=== PATIENT | male | born 1985 | race American Indian/Alaskan Native ===

== ENCOUNTER 2018-05-31 18:52 | Emergency (ER) | payer SELFPAY ==
[2018-05-31 19:22] VITALS: BP 158/97
== END 2018-05-31 19:20 | disposition left against medical advice (07) ==
LOC: ED 18:52
DX: R30.0 Dysuria (principal); Z53.21 Procedure and treatment not carried out due to patient leaving prior to being seen by health care provider

== ENCOUNTER 2018-10-08 06:09 | Emergency (ER) | payer SELFPAY ==
[2018-10-08 06:18] VITALS: BP 133/65
--- NOTE | 2018-10-08 06:40 | XRay Report ---
FINAL REPORT PROCEDURE: XR HAND 2V RT TECHNIQUE: RIGHT hand radiographs, AP and lateral views. CPT 26516-YT HISTORY: pain/swelling hurt right middle finger on the job COMPARISON: No prior studies are available for comparison. FINDINGS: Fracture (s) and/or Dislocation(s): None . Alignment: Normal . Joint space(s): Normal . Soft tissues: Normal . Bone mineralization: Normal . Foreign bodies: None . IMPRESSION: Normal Examination .
--- NOTE | 2018-10-08 07:34 | Emergency Department Report ---
HPI - General Chief Complaint: Extremity Injury, Upper Time Seen by Provider: 10/08/18 07:28 - HPI HPI: This is a 32-year-old male with no prior medical history presents to ED stating that 3 days ago while he was at work he hit his middle finger on his right hand. Patient states he lifts things also felt line and accidentally cut his middle finger. Patient states that he came to be evaluated. He denies any deformity, inability to use his hands. He denies loss of sensation and is able to flex and extend his hands. ED Past Medical Hx - Past Medical History Previous Medical History?: No - Surgical History Past Surgical History?: No - Social History Smoking Status: Current Every Day Smoker Substance Use Type: Alcohol - Medications Home Medications: Home Medications Medication Instructions Recorded Confirmed Last Taken Type Ibuprofen [Motrin] 800 mg PO Q8HR #20 tablet 10/08/18 Unknown Rx cephALEXin [Keflex] 500 mg PO Q12HR #10 cap 10/08/18 Unknown Rx ED Review of Systems ROS: Stated complaint: FINGER INJURY Other details as noted in HPI Comment: All other systems reviewed and negative Physical Exam - Physical Exam Vital Signs: Vital Signs 10/08/18 06:17 Temperature 97.9 F Pulse Rate 65 Respiratory 18 Rate Blood Pressure 133/65 [Left] O2 Sat by Pulse 97 Oximetry Physical Exam: GENERAL: Alert and oriented x3, no apparent distress, Normal Gait, atraumatic. HEAD: Head is normocephalic and a-traumatic. EXTREMITIES/MUSCULOSKELETAL: No cyanosis, clubbing, rash, lesions or edema. Full ROM bilaterally. Radial Pulses 2+ bilaterally. UE 5+ strength bilaterally, right middle finger abrasion to the posterior aspect of the finger. Nontender to palpation, does not look infected. NEUROLOGIC: The patient is cooperative with no focal neurologic deficits. SKIN: Warm and dry, No lesions, No ulceration or induration present. ED Course Vital Signs 10/08/18 06:17 Temperature 97.9 F Pulse Rate 65 Respiratory 18 Rate Blood Pressure 133/65 [Left] O2 Sat by Pulse 97 Oximetry ED Medical Decision Making - Radiology Data Radiology results: report reviewed, image reviewed FINAL REPORT PROCEDURE: XR HAND 2V RT TECHNIQUE: RIGHT hand radiographs, AP and lateral views. CPT 10147-BQ HISTORY: pain/swelling hurt right middle finger on the job COMPARISON: No prior studies are available for comparison. FINDINGS: Fracture (s) and/or Dislocation(s): None . Alignment: Normal . Joint space(s): Normal . Soft tissues: Normal . Bone mineralization: Normal . Foreign bodies: None . IMPRESSION: Normal Examination . Transcribed By: [facility] Dictated By: KYLIE ALEX MD Electronically Authenticated By: KYLIE ALEX MD Signed Date/Time: 10/08/18 0640 Critical care attestation.: If time is entered above; I have spent that time in minutes in the direct care of this critically ill patient, excluding procedure time. ED Disposition Clinical Impression: Finger abrasion, non-infected Disposition: - TO HOME OR SELFCARE Is pt being admited?: No Does the pt Need Aspirin: No Condition: Stable Instructions: Abrasion (ED), Acute Wound Care (ED) Additional Instructions: Make sure to follow up with the primary care physician as discussed. Take all your medications as you've been prescribed. If you have any worsening symptoms or develop new symptoms please return to ED immediately. Prescriptions: cephALEXin [Keflex] 500 mg PO Q12HR #10 cap Ibuprofen [Motrin] 800 mg PO Q8HR #20 tablet Referrals: ANNE MARIE TURCIOS MD [Primary Care Provider] - 3-5 Days Forms: Work/School Release Form(ED) Time of Disposition: 07:49
== END 2018-10-08 07:58 | disposition home or self-care (01) ==
LOC: ED 06:09
DX: S60.412A Abrasion of right middle finger, initial encounter (principal); F17.200 Nicotine dependence, unspecified, uncomplicated; W45.8XXA Other foreign body or object entering through skin, initial encounter; Y93.89 Activity, other specified; Y92.89 Other specified places as the place of occurrence of the external cause; Y99.8 Other external cause status

== ENCOUNTER 2019-08-11 20:15 | Emergency (ER) | payer SELFPAY ==
--- NOTE | 2019-08-11 21:17 | Event Note ---
ED Screening Note Date of service: 08/11/19 Time: 21:15 ED Screening Note: 33 y edouard presents with right sided lower jaw swelling and pain x 2 days states motrin no relief pain with opening mouth and talking, UNABLE TO EAT DUE TO PAIN AND SWELL swelling noted to bottom right jaw, ttp This initial assessment/diagnostic orders/clinical plan/treatment(s) is/are subject to change based on patients health status, clinical progression and re- assessment by fellow clinical providers in the ED. Further treatment and workup at subsequent clinical providers discretion. Patient/guardian urged not to elope from the ED as their condition may be serious if not clinically assessed and managed. Initial orders include: PAIN MEDS ACC EVAL
[2019-08-12] MEDS ORDERED: KETOROLAC 30 MG/1 ML INJ IV ONE (00:14)
--- NOTE | 2019-08-12 00:22 | Emergency Department Report ---
HPI - HPI HPI: Room 39 The patient is a 33-year-old male presenting with chief complaint of jaw pain. The patient states he awakened 2 days ago with pain and swelling in the right submandibular region. Patient denies any preceding trauma. Patient complains of trismus and odynophagia. Patient states she has just been drinking ensure for the past 2 days. Patient denies any history of fever. The patient gets his pain a score of 9/10. The patient states he took the bus to the hospital Location: [See above] Duration: [See above] Quality: [See above] Severity: [See above] Timing: [See above] Context: [See above] Modifying factors: [See above] Associated signs and symptoms: [see above] <PAULO HOLT - Last Filed: 08/12/19 02:30> <ISHMAEL FERREIRA - Last Filed: 08/12/19 03:57> - General Chief Complaint: Dental/Oral Time Seen by Provider: 08/12/19 00:07 ED Past Medical Hx - Past Medical History Previous Medical History?: No - Surgical History Past Surgical History?: No - Family History Family history: no significant - Social History Smoking Status: Current Every Day Smoker (1/3 pack per day) Substance Use Type: None (denies illicit drug use), Alcohol (occasional) <PAULO HOLT - Last Filed: 08/12/19 02:30> <ISHMAEL FERREIRA - Last Filed: 08/12/19 03:57> - Medications Home Medications: Home Medications Medication Instructions Recorded Confirmed Last Taken Type Ibuprofen [Motrin] 800 mg PO Q8HR #20 tablet 10/08/18 Unknown Rx cephALEXin [Keflex] 500 mg PO Q12HR #10 cap 10/08/18 Unknown Rx Acetaminophen/Codeine [Tylenol 1 tab PO Q6H PRN #12 tab 08/12/19 Unknown Rx /Codeine # 3 tab] Clindamycin [Clindamycin CAP] 300 mg PO Q6HR #80 capsule 08/12/19 Unknown Rx Ketorolac [Toradol] 10 mg PO Q8H PRN #20 tablet 08/12/19 Unknown Rx ED Review of Systems ROS: Stated complaint: SWOLLEN RIGHT JAW, CANT SWALLOW Other details as noted in HPI Constitutional: denies: fever Eyes: denies: eye pain ENT: throat pain, other (trismus) Respiratory: no symptoms reported Cardiovascular: denies: chest pain Endocrine: no symptoms reported Gastrointestinal: denies: abdominal pain <PAULO HOLT - Last Filed: 08/12/19 02:30> ROS: Stated complaint: SWOLLEN RIGHT JAW, CANT SWALLOW Other details as noted in HPI <ISHMAEL FERREIRA - Last Filed: 08/12/19 03:57> Physical Exam - Physical Exam Vital Signs: Vital Signs 08/11/19 20:21 Temperature 98.5 F Pulse Rate 84 Respiratory 20 Rate Blood Pressure 140/81 O2 Sat by Pulse 99 Oximetry Physical Exam: GENERAL: The patient is well-developed well-nourished male lying on stretcher not appearing to be in acute distress. [] HEENT: Normocephalic. Atraumatic. Trismus present. Right submandibular fullness with tenderness to palpation. Gingiva normal in appearance NECK: Supple. There is no stridor CHEST/LUNGS: There is no respiratory distress noted. SKIN: There is no rash. There is no edema. There is no diaphoresis. NEURO: The patient is awake, alert, and oriented. The patient is cooperative. The patient has no focal neurologic deficits. The patient has normal speech MUSCULOSKELETAL: There is no evidence of acute injury. <PAULO HOLT - Last Filed: 08/12/19 02:30> - Physical Exam Vital Signs: Vital Signs 08/11/19 20:21 Temperature 98.5 F Pulse Rate 84 Respiratory 20 Rate Blood Pressure 140/81 O2 Sat by Pulse 99 Oximetry <ISHMAEL FERREIRA - Last Filed: 08/12/19 03:57> ED Course Vital Signs 08/11/19 20:21 Temperature 98.5 F Pulse Rate 84 Respiratory 20 Rate Blood Pressure 140/81 O2 Sat by Pulse 99 Oximetry - Reevaluation(s) Reevaluation #1: 08/12/19 02:30 CT Neck pending. Results to be followed up By Nedra DURAN. <PAULO HOLT - Last Filed: 08/12/19 02:30> Vital Signs 08/11/19 20:21 Temperature 98.5 F Pulse Rate 84 Respiratory 20 Rate Blood Pressure 140/81 O2 Sat by Pulse 99 Oximetry <ISHMAEL FERREIRA - Last Filed: 08/12/19 03:57> ED Medical Decision Making - Lab Data Result diagrams: 08/12/19 00:41 08/12/19 00:41 Laboratory Tests 08/12/19 08/12/19 00:41 00:41 WBC 16.6 H RBC 5.02 Hgb 15.9 H Hct 48.0 H MCV 96 H MCH 32 MCHC 33 RDW 13.3 Plt Count 299 [place] % (Auto) [place]eller Sodium 136 L Potassium 4.3 Chloride 95.3 L Carbon Dioxide 23 Anion Gap 22 BUN 11 Creatinine 1.3 Estimated GFR > 60 BUN/Creatinine Ratio 8 Glucose 104 H Calcium 9.8 - Differential Diagnosis sialoadenitis, parotitis <PAULO HOLT - Last Filed: 08/12/19 02:30> - Lab Data Result diagrams: 08/12/19 00:41 08/12/19 00:41 - Radiology Data Radiology results: report reviewed, image reviewed Findings [facility] [address] [place] [address] Cat Scan Report Signed Patient: FRANK CHINO MR#: [id number] : 1985 Acct:[id number] Age/Sex: 33 / M ADM Date: 08/11/19 Loc: ED Attending Dr: Ordering Physician: PAULO HOLT MD Date of Service: 08/12/19 Procedure(s): CT neck w con Accession Number(s): [id number] cc: PAULO HOLT MD CT NECK WITH CONTRAST HISTORY: Right submandibular swelling. COMPARISON: None. TECHNIQUE: Routine CT of the neck is performed following intravenous contrast. All CT scans at this location are performed using CT dose reduction for ALARA by means of automated exposure control. CONTRAST: 100 mL Omnipaque 300 FINDINGS: There is a right-sided facial cellulitis in the right lower cheek. In addition, there is a fluid collection along the medial surface of the right mandibular angle and the terrazzo worker space extending superiorly along the distal attachment of the right temporalis muscle that measures 2.4 x 2.5 cm in axial dimension and 2.6 cm in greatest craniocaudal dimension. There is an unerupted right mandibular third molar adjacent to the fluid collection with subtle cortical breakthrough along the tooth apex that is the probable source of infection. There is mild right level 1 reactive adenopathy. There is no venous thrombosis. IMPRESSION: 1. Right-sided facial cellulitis with a 2.6 cm abscess along the medial surface of the right mandibular angle in the right terrazzo worker space that appears to be due to periapical dental disease and cortical breakthrough involving the right mandibular third molar. Signer Name: Kwabena Miller MD Signed: 08/12/2019 3:27 AM Workstation Name: [id number] Transcribed By: VENKATA Dictated By: Kwabena Miller MD Electronically Authenticated By: Kwabena Miller MD Signed Date/Time: 08/12/19 0327 - Medical Decision Making The soft tissue neck CT scan with contrast report reviewed and shows a right-si ded facial cellulitis with a 2.6 cm abscess along the medial surface of the right mandibular angle in the right terrazzo worker space that appears to be due to periapical dental disease and cortical breakthrough involving the right mandibular third molar. Report was reviewed with the ED attending physician Dr. Lalo Mane the plan of care to discharge the patient home on oral antibiotics, pain medications and a referral to the dentist or oral surgeon. On reevaluation, patient's resting comfortably in the bed having been sleeping. Patient was discharged home on pain medications and oral antibiotics clindamycin and referred to the [facility] for further evaluation. Davion marlenejose was advised to return to the ED immediately if symptoms get worse. <ISHMAEL FERREIRA - Last Filed: 08/12/19 03:57> Critical care attestation.: If time is entered above; I have spent that time in minutes in the direct care of this critically ill patient, excluding procedure time. <PAULO HOLT - Last Filed: 08/12/19 02:30> Critical care attestation.: If time is entered above; I have spent that time in minutes in the direct care of this critically ill patient, excluding procedure time. <ISHMAEL FERREIRA - Last Filed: 08/12/19 03:57> ED Disposition <PAULO HOLT - Last Filed: 08/12/19 02:30> Is pt being admited?: No Does the pt Need Aspirin: No Time of Disposition: 03:54 <ISHMAEL FERREIRA - Last Filed: 08/12/19 03:57> Clinical Impression: Dental abscess, Acute gingivitis Cellulitis Qualifiers: Site of cellulitis: neck Qualified Code(s): L03.221 - Cellulitis of neck Disposition: TO HOME OR SELFCARE Condition: Stable Instructions: Dental Abscess (ED), Cellulitis (ED), Gingivitis (ED) Additional Instructions: Take medication with food, drink plenty of fluids and follow-up with your [facility] 3-5 days for reevaluation. Return to the ED immediately if symptoms get worse. Prescriptions: Clindamycin [Clindamycin CAP] 300 mg PO Q6HR #80 capsule Ketorolac [Toradol] 10 mg PO Q8H PRN #20 tablet PRN Reason: Pain Acetaminophen/Codeine [Tylenol /Codeine # 3 tab] 1 tab PO Q6H PRN #12 tab PRN Reason: Pain , Severe (7-10) Referrals: [facility] [Outside] - 3-5 Days Print Language: VINCENTIAN
[2019-08-12 01:14] LABS: Hemoglobin 15.9 gm/dl (11.8-15.2); Mean Corpuscular HGB Conc 33 % (32-34); Mean Corpuscular Volume 96 fl (84-94); Red Blood Count 5.02 M/mm3 (3.65-5.03); Red Cell Distribution Width 13.3 % (13.2-15.2)
[2019-08-12 01:20] LABS: Platelet Count 299 K/mm3 (140-440)
[2019-08-12 01:30] LABS: BUN/Creatinine Ratio 8; Blood Urea Nitrogen 11 mg/dL (9-20); Calcium 9.8 mg/dL (8.4-10.2); Hemolysis Index 66
--- NOTE | 2019-08-12 03:32 | Cat Scan Report ---
CT NECK WITH CONTRAST HISTORY: Right submandibular swelling. COMPARISON: None. TECHNIQUE: Routine CT of the neck is performed following intravenous contrast. All CT scans at this [facility] are performed using CT dose reduction for ALARA by means of automated exposure control. CONTRAST: 100 mL Omnipaque 300 FINDINGS: There is a right-sided facial cellulitis in the right lower cheek. In addition, there is a fluid rebecca ection along the medial surface of the right mandibular angle and the fruit harvest worker space extending supe riorly along the distal attachment of the right temporalis muscle that measures 2.4 x 2.5 cm in axial dimension and 2.6 cm in greatest craniocaudal dimension. There is an unerupted right mandibular thir d molar adjacent to the fluid collection with subtle cortical breakthrough along the tooth apex that is the probable source of infection. There is mild right level 1 reactive adenopathy. There is no rios ous thrombosis. IMPRESSION: 1. Right-sided facial cellulitis with a 2.6 cm abscess along the medial surface of the right mandibul ar angle in the right fruit harvest worker space that appears to be due to periapical dental disease and cortic al breakthrough involving the right mandibular third molar. Signer Name: Kwabena Miller MD Signed: 08/12/2019 3:27 AM Workstation Name: [email or web address]
[2019-08-12 04:36] VITALS: BP 132/68
[2019-08-12 04:47] LABS: Anisocytosis 1+; Basophils % (Manual) 0 % (0.0-1.8); Eosinophils % (Manual) 0 % (0.0-4.3); Platelet Estimate Consistent w Auto; Total Cells Counted 100
== END 2019-08-12 04:37 | disposition home or self-care (01) ==
LOC: ED 20:15
DX: K04.7 Periapical abscess without sinus (principal); K05.00 Acute gingivitis, plaque induced; L03.211 Cellulitis of face; F17.200 Nicotine dependence, unspecified, uncomplicated; Z79.899 Other long term (current) drug therapy
CPT/HCPCS: 36415; 70491; 80048; 85007; 85025; 96374; 99284; J1885; Q9967

== ENCOUNTER 2019-12-26 13:42 | Emergency (ER) | payer SELFPAY ==
[2019-12-26 13:52] VITALS: BP 118/82
[2019-12-26] MEDS ORDERED: SODIUM CHLORIDE 0.9% 1000 ML 1,000 ML IV ONE (15:40)
[2019-12-26] MEDS ORDERED: dexAMETHasone 20 MG/5 ML VIAL IV ONE (15:41)
[2019-12-26] MEDS ORDERED: PENICILLIN G BENZATHINE 1.2 MILLION UNIT/2 ML INJ IM ONE (15:59)
--- NOTE | 2019-12-26 16:06 | Emergency Department Report ---
ED ENT HPI - General Chief complaint: Sore Throat Stated complaint: MOUTH SWOLLEN Time Seen by Provider: 12/26/19 14:24 Source: patient Mode of arrival: Ambulatory Limitations: No Limitations - History of Present Illness Initial comments: 34-year-old male reports neck swelling and inability to open his mouth x2 days. He has only been able to take sips of fluids unable to open his mouth to put food in. He denies fever, URI symptoms shortness of breath or chest pain. He denies any past medical history Consistency: constant Improves with: none Worsens with: swallowing Associated Symptoms: pain with swallowing. denies: fever, cough, gum swelling, toothache - Related Data Previous Rx's Medication Instructions Recorded Last Taken Type Ibuprofen [Motrin] 800 mg PO Q8HR #20 tablet 10/08/18 Unknown Rx cephALEXin [Keflex] 500 mg PO Q12HR #10 cap 10/08/18 Unknown Rx Acetaminophen/Codeine [Tylenol 1 tab PO Q6H PRN #12 tab 08/12/19 Unknown Rx /Codeine # 3 tab] Clindamycin [Clindamycin CAP] 300 mg PO Q6HR #80 capsule 08/12/19 Unknown Rx Ketorolac [Toradol] 10 mg PO Q8H PRN #20 tablet 08/12/19 Unknown Rx Clindamycin [Clindamycin CAP] 300 mg PO Q8H 10 Days #30 cap 12/26/19 Unknown Rx Allergies Allergy/AdvReac Type Severity Reaction Status Date / Time No Known Allergies Allergy Unverified 10/08/18 06:13 ED Dental HPI - General Chief complaint: Sore Throat Stated complaint: MOUTH SWOLLEN Time Seen by Provider: 12/26/19 14:24 Source: patient Mode of arrival: Ambulatory Limitations: No Limitations - Related Data Previous Rx's Medication Instructions Recorded Last Taken Type Ibuprofen [Motrin] 800 mg PO Q8HR #20 tablet 10/08/18 Unknown Rx cephALEXin [Keflex] 500 mg PO Q12HR #10 cap 10/08/18 Unknown Rx Acetaminophen/Codeine [Tylenol 1 tab PO Q6H PRN #12 tab 08/12/19 Unknown Rx /Codeine # 3 tab] Clindamycin [Clindamycin CAP] 300 mg PO Q6HR #80 capsule 08/12/19 Unknown Rx Ketorolac [Toradol] 10 mg PO Q8H PRN #20 tablet 08/12/19 Unknown Rx Clindamycin [Clindamycin CAP] 300 mg PO Q8H 10 Days #30 cap 12/26/19 Unknown Rx Allergies Allergy/AdvReac Type Severity Reaction Status Date / Time No Known Allergies Allergy Unverified 10/08/18 06:13 ED Review of Systems ROS: Stated complaint: MOUTH SWOLLEN Other details as noted in HPI Comment: All other systems reviewed and negative Constitutional: denies: chills, fever Eyes: denies: eye pain, vision change ENT: throat pain, other (drooling) Cardiovascular: denies: chest pain Endocrine: denies: no symptoms reported Gastrointestinal: denies: abdominal pain, diarrhea, constipation Genitourinary: denies: urgency, hematuria Skin: denies: rash, change in color Neurological: denies: headache, paresthesias Psychiatric: denies: anxiety ED Past Medical Hx - Past Medical History Previous Medical History?: No - Surgical History Past Surgical History?: No - Social History Smoking Status: Current Every Day Smoker Substance Use Type: Alcohol - Medications Home Medications: Home Medications Medication Instructions Recorded Confirmed Last Taken Type Ibuprofen [Motrin] 800 mg PO Q8HR #20 tablet 10/08/18 Unknown Rx cephALEXin [Keflex] 500 mg PO Q12HR #10 cap 10/08/18 Unknown Rx Acetaminophen/Codeine [Tylenol 1 tab PO Q6H PRN #12 tab 08/12/19 Unknown Rx /Codeine # 3 tab] Clindamycin [Clindamycin CAP] 300 mg PO Q6HR #80 capsule 08/12/19 Unknown Rx Ketorolac [Toradol] 10 mg PO Q8H PRN #20 tablet 08/12/19 Unknown Rx Clindamycin [Clindamycin CAP] 300 mg PO Q8H 10 Days #30 cap 12/26/19 Unknown Rx ED Physical Exam - General Limitations: No Limitations General appearance: alert, in no apparent distress - Head Head exam: Present: atraumatic - Eye Eye exam: Present: normal appearance. Absent: conjunctival injection - ENT ENT exam: Present: TM's normal bilaterally, other (pt unable to open mouth.Unable to visualize throat. Opens up only enough to proturde his tongue. Able to take small sips. ) - Neck Neck exam: Present: lymphadenopathy - Respiratory Respiratory exam: Present: normal lung sounds bilaterally. Absent: respiratory distress, wheezes, rales, rhonchi - Extremities Exam Extremities exam: Present: normal inspection - Neurological Exam Neurological exam: Present: alert, oriented X3 - Psychiatric Psychiatric exam: Present: normal affect - Skin Skin exam: Present: warm, dry, intact, normal color. Absent: rash ED Course Vital Signs 12/26/19 13:48 Temperature 98.5 F Pulse Rate 79 Respiratory 20 Rate Blood Pressure 118/82 O2 Sat by Pulse 96 Oximetry - Reevaluation(s) Reevaluation #1: 12/26/19 17:56 Patient resting comfortably in no distress still with limited opening of his mouth. He is able to take oral fluids. ED Medical Decision Making - Lab Data Result diagrams: 12/26/19 15:46 12/26/19 15:46 - Radiology Data Radiology results: report reviewed CT soft tissue neck IMPRESSION: 1. Phlegmon/early abscess seen in the insulation power unit tender space region on the right, along the mandible, as described above. Similar type findings seen on prior exam - Medical Decision Making 34-year-old male presented to the ER with throat pain and inability to open his mouth x 2 days. Rapid strep is positive and patient was treated with Bicillin injection. CT soft tissue neck shows an early abscess along right mandible. Patient is able to take tolerate fluids. Plan to discharge with prescription for clindamycin. Follow-up with PCP or ENT or return to the hospital for any difficulty swallowing or any other airway issues. Critical care attestation.: If time is entered above; I have spent that time in minutes in the direct care of this critically ill patient, excluding procedure time. ED Disposition Clinical Impression: Strep pharyngitis, Abscess Disposition: - TO HOME OR SELFCARE Is pt being admited?: No Does the pt Need Aspirin: No Condition: Stable Instructions: Strep Throat (ED), Abscess (ED) Additional Instructions: Warm salt water gargles change your toothbrush tomorrow. Take clindamycin as instructed. Follow-up with your primary care doctor or ear nose and throat doctor. Return to the emergency room if you have difficulty breathing if or if you are unable to swallow. Prescriptions: Clindamycin [Clindamycin CAP] 300 mg PO Q8H 10 Days #30 cap Referrals: PRIMARY CARE, [Primary Care Provider] - 3-5 Days Time of Disposition: 18:08
[2019-12-26 16:17] LABS: BUN/Creatinine Ratio 11; Blood Urea Nitrogen 11 mg/dL (9-20); Hemolysis Index 15
[2019-12-26 16:18] LABS: Hematocrit 46.9 % (35.5-45.6); Hemoglobin 15.5 gm/dl (11.8-15.2); Mean Corpuscular HGB Conc 33 % (32-34); Mean Corpuscular Volume 95 fl (84-94); Platelet Count 245 K/mm3 (140-440); Red Blood Count 4.91 M/mm3 (3.65-5.03); Red Cell Distribution Width 13.6 % (13.2-15.2)
--- NOTE | 2019-12-26 17:55 | Cat Scan Report ---
CT neck w con INDICATION / CLINICAL INFORMATION: 34 years Male; MAIN: r/o peritonsillar abscess RT SIDE OMNIPAQUE 300 100ML. TECHNIQUE: Contiguous thin cut axial images obtained through the neck following IV contrast. Sagittal and simpson l reconstructions performed by the technologist. All CT scans at this location are performed using CT dose reduction for ALARA by means of automated exposure control. COMPARISON: 08/12/2019 FINDINGS: Again noted is a vague area of decreased attenuation in the muscles of mastication on the l eft, predominantly involving the medial pterygoid. This finding lies along the medial and inferior angeles rface of the posterior body of the mandible. I do not see a well-defined wall associated with this lo w density area-findings most likely represent phlegmon versus early abscess. Similar type finding was seen on prior exam. Again noted is the periapical lucency associated with the wisdom tooth on the ri ght. There is focal mass effect adjacent soft tissues. Cellulitic process is seen in the subcutaneous soft tissues of the adjacent right facial region. There is mild thickening of the platysma muscle as well. Presumed reactive level 1 and level 2 lymph nodes are seen-right greater than left. MUCOSAL SPACE: Otherwise, the nasopharynx, oropharynx and vallecula, oral cavity and floor of mouth, hypopharynx, and larynx are grossly normal. The parapharyngeal and retropharyngeal spaces are grossly normal in appearance. LYMPH NODES: No signs of suppurative lymph nodes identified. SALIVARY GLANDS: Parotid, submandibular, and visualized sublingual glands are within normal limits. THYROID GLAND: Unremarkable. PARANASAL SINUSES: Visualized paranasal sinuses and mastoid air cells are essentially clear. SPINE: No significant abnormality of the cervical spine appreciated. VASCULAR STRUCTURES: Vascular structures are grossly normal in appearance. Surrounding soft tissues are otherwise grossly normal. IMPRESSION: 1. Phlegmon/early abscess seen in the energy efficiency finance manager space region on the right, along the mandible, as de scribed above. Similar type findings seen on prior exam. Signer Name: León Palomares MD, III Signed: 12/26/2019 5:50 PM Workstation Name: [id number]
== END 2019-12-26 18:22 | disposition home or self-care (01) ==
LOC: ED 13:42
DX: J02.0 Streptococcal pharyngitis (principal); L02.91 Cutaneous abscess, unspecified; F17.200 Nicotine dependence, unspecified, uncomplicated; Z79.1 Long term (current) use of non-steroidal anti-inflammatories (NSAID); Z79.2 Long term (current) use of antibiotics; Z79.899 Other long term (current) drug therapy
CPT/HCPCS: 36415; 70491; 80048; 85027; 87430; 96372; 96374; 99284; J0561; J1100; J7030; Q9967

== ENCOUNTER 2020-05-28 07:19 | Emergency (ER) | payer OTHER ==
[2020-05-28 07:26] VITALS: BP 146/79
[2020-05-28] MEDS ORDERED: IBUPROFEN 800 MG TAB PO ONE (10:22)
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
== END 2020-05-28 11:28 | disposition home or self-care (01) ==
LOC: ED 07:19
DX: S13.4XXA Sprain of ligaments of cervical spine, initial encounter (principal); S39.012A Strain of muscle, fascia and tendon of lower back, initial encounter; Z79.1 Long term (current) use of non-steroidal anti-inflammatories (NSAID); Z79.2 Long term (current) use of antibiotics; Z79.899 Other long term (current) drug therapy; V49.49XA Driver injured in collision with other motor vehicles in traffic accident, initial encounter; Y93.89 Activity, other specified; Y92.410 Unspecified street and highway as the place of occurrence of the external cause; Y99.8 Other external cause status
CPT/HCPCS: 72040; 72100

== ENCOUNTER 2022-03-11 07:33 | Emergency (ER) | payer SELFPAY ==
[2022-03-11 07:46] VITALS: BP 152/65
--- NOTE | 2022-03-11 08:21 | Emergency Department Report ---
ED Rash HPI - HPI Chief Complaint: Skin Rash Stated Complaint: RASH/ITCHING Time Seen by Provider: 03/11/22 08:19 ED Review of Systems ROS: Stated complaint: RASH/ITCHING Other details as noted in HPI Comment: All other systems reviewed and negative ED Past Medical Hx - Past Medical History Previous Medical History?: No - Surgical History Past Surgical History?: No - Family History Family history: no significant - Social History Smoking Status: Never Smoker Substance Use Type: None - Medications Home Medications: Home Medications Medication Instructions Recorded Confirmed Last Taken Type Ibuprofen [Motrin] 800 mg PO Q8HR #20 tablet 10/08/18 Unknown Rx cephALEXin [Keflex] 500 mg PO Q12HR #10 cap 10/08/18 Unknown Rx Acetaminophen/Codeine [Tylenol 1 tab PO Q6H PRN #12 tab 08/12/19 Unknown Rx /Codeine # 3 tab] Clindamycin [Clindamycin CAP] 300 mg PO Q6HR #80 capsule 08/12/19 Unknown Rx Ketorolac [Toradol] 10 mg PO Q8H PRN #20 tablet 08/12/19 Unknown Rx Clindamycin [Clindamycin CAP] 300 mg PO Q8H 10 Days #30 cap 12/26/19 Unknown Rx Cyclobenzaprine [Flexeril] 10 mg PO QHS PRN #10 tablet 05/28/20 Unknown Rx Naproxen 500 mg PO Q12H PRN #12 tablet 05/28/20 Unknown Rx Famotidine [Pepcid] 20 mg PO DAILY #30 tablet 03/11/22 Unknown Rx diphenhydrAMINE [Benadryl CAP] 25 mg PO Q8HR PRN #20 capsule 03/11/22 Unknown Rx predniSONE [Deltasone] 20 mg PO DAILY #5 tablet 03/11/22 Unknown Rx Rash Exam - Exam General: Vital signs noted. No distress. Alert and acting appropriately. HEENT: No Periorbital Edema, No Conjuctival Injection, No Chemosis, No Perioral Edema, No Tongue Edema, No Uvular Edema, No Compromised Airway, No Drooling Lungs: Yes Good Air Exchange (Normal Breath Sounds), No Wheezes, No Ronchi, No Stridor, No Cough, No Labored Respirations, No Retractions, No Use of Accessory Muscles, No Other Abnormal Lung Sounds Heart: Yes Regular, No Murmur Skin: Yes Urticarial Rash Other: Positive: Abdomen Normal, Neurologic Normal, Musculoskeletal Normal ED Course Vital Signs 03/11/22 07:41 Temperature 97.6 F Pulse Rate 72 Respiratory 14 Rate Blood Pressure 152/65 O2 Sat by Pulse 98 Oximetry ED Medical Decision Making - Medical Decision Making Vital Signs 03/11/22 07:41 Temperature 97.6 F Pulse Rate 72 Respiratory 14 Rate Blood Pressure 152/65 O2 Sat by Pulse 98 Oximetry - Differential Diagnosis urticarial rash Critical care attestation.: If time is entered above; I have spent that time in minutes in the direct care of this critically ill patient, excluding procedure time. ED Disposition Clinical Impression: Urticaria Disposition: HOME / SELF CARE / HOMELESS Is pt being admited?: No Does the pt Need Aspirin: No Condition: Stable Instructions: Hives, [id number] Additional Instructions: meds as ordered today follow up with pcp if persists referral below Referrals: SARAVANAN SHAH MD [Staff Physician] - 3-5 Days Forms: Work/School Release Form(ED) Time of Disposition: 08:25
== END 2022-03-11 09:00 | disposition home or self-care (01) ==
LOC: ED 07:33
DX: L50.9 Urticaria, unspecified (principal); Z79.899 Other long term (current) drug therapy
CPT/HCPCS: 99282